=== PATIENT | female | born 1990 | race African-American/Black ===

== ENCOUNTER → 2018-12-17 | Outpatient (CLI) | payer OTHER ==
--- NOTE | 2018-12-17 19:50 | REP ---
Clinical: Irregular menstrual cycles. Technique: Transabdominal pelvic ultrasound followed by transvaginal examination for better evaluation of the endometrium and adnexa with color Doppler evaluation of the ovaries. Findings: Bladder is unremarkable and measures 7.4 x 6.5 x 3.9 cm . Heterogeneous anteverted uterus measures 8.8 x 4.4 x 5.5 cm with incidental myometrial calcifications. The endometrial complex measures 2.4 mm thickness. No discrete significant uterine or endometrial abnormalities are appreciated. IUD identified in central satisfactory position. Bilateral ovaries are normal in appearance and vascularity without evidence for torsion. Right ovary measures 3.1 x 2.0 x 1.7 cm ; R I = 0.51 . Left ovary measures 3.8 x 1.8 x 2.2 cm ; R I = 0.56 . No pelvic fluid or adnexal mass lesion . Impression: 1. Essentially normal pelvic ultrasound. Electronically Signed by Gene Lynn MD 12/17/2018 07:42 P
== END ==
LOC: M RAD 17:09
PROVIDERS: ATTEND Advanced Practice Midwife
DX: N92.6 Irregular menstruation, unspecified (principal)

== ENCOUNTER → 2019-02-05 | Outpatient (REF) | payer OTHER | LOC: M SFHCPLAZ 17:22 | PROVIDERS: ATTEND Nurse Practitioner Adult Health | DX: J02.9 Acute pharyngitis, unspecified (principal) | CPT/HCPCS: 87081; 87880; G0463 ==

== ENCOUNTER 2019-07-14 08:26 | Emergency (ER) | payer OTHER ==
[~2019-07-14] VITALS: Ht 157.5 cm; Wt 72.7 kg
[2019-07-14 09:02] LABS: BASO % 0.1 % (0.0-1.0); EOS # 0.3 10^3/uL (0.0-0.5); EOS % 2.4 % (0.0-3.0); HEMATOCRIT 41.6 % (36.0-47.0); HEMOGLOBIN 13.5 g/dl (12.0-15.5); LYMPH # 0.9 10^3/uL (1.5-5.0); LYMPH % 6.9 % (24.0-44.0); MEAN CORPUSCULAR HEMOGLOBIN 28.6 pg (27.0-33.0); MEAN CORPUSCULAR HGB CONC 32.5 g/dl (32.0-36.5); MEAN CORPUSCULAR VOLUME 88.1 fl (80.0-96.0); MONO # 0.8 10^3/uL (0.0-0.8); MONO % 5.9 % (0.0-5.0); NEUTROPHILS # 11.4 10^3/uL (1.5-8.5); NEUTROPHILS % 84.4 % (36.0-66.0); PLATELET COUNT, AUTOMATED 285 10^3/uL (150-450); RED BLOOD COUNT 4.72 10^6/uL (4.00-5.40); WHITE BLOOD COUNT 13.5 10^3/uL (4.0-10.0)
[2019-07-14 09:36] LABS: ALBUMIN 3.9 GM/DL (3.2-5.2); ALT/SGPT 14 U/L (12-78); BILIRUBIN,DIRECT < 0.1 MG/DL (0.0-0.2); BILIRUBIN,TOTAL 0.3 MG/DL (0.2-1.0); CK-MB VALUE MASS < 1.0 NG/ML (<3.6); CPK CREATINE PHOSPHOKINASE 111 U/L (26-192); TROPONIN I < 0.02 NG/ML (< 0.10)
[2019-07-14 09:37] LABS: FREE T4 1.21 NG/DL (0.76-1.46); LIPASE 41 U/L (73-393); NT-PRO BNP 30 PG/ML (<125)
--- NOTE | 2019-07-14 10:04 | REP ---
Portable chest, 09:40 a.m., single AP view with the the patient sitting: There are no comparisons. The lung adams are clear. The cardiac size is normal. The katerine, mediastinum, and skeletal structures are unremarkable. Impression: Negative portable chest. Electronically Signed by David Guardado MD 07/14/2019 09:56 A
[2019-07-14] MEDS ORDERED: ISOVUE-370 76% 100ML VIAL (Q9967) As Ordered ONE (10:16)
[2019-07-14] MEDS ORDERED: IPRATROPIUM 0.5MG/ALBUTEROL 2.5MG INH SOL UD 3ML (DUONEB)(J7620) NEB ONE (10:30)
[2019-07-14] MEDS ORDERED: ALBUTEROL SULFATE 2.5 MG/0.5 ML INH NEB SOLN INH ONE (10:30)
[2019-07-14] MEDS ORDERED: methylPREDNISolone INJ 40 MG/1 ML VIAL (J2920) IV ONE (10:30)
--- NOTE | 2019-07-14 11:15 | REP ---
CT of the chest with IV contrast, CT pulmonary angiography: The study is correlated with the portable plain film study performed earlier today. There are no emboli in the pulmonary trunk or central pulmonary arteries. There are no emboli in the pulmonary lobe or segment branches. There are no infiltrates. There are no pleural effusions. There is a 5 mm left upper lobe lung nodule on image 39. There is a 4 mm pleural-based left lower lobe lung nodule on image 65. There are no comparison studies. These are category III lung nodules. Recommend follow-up chest CT in 6 months for further evaluation. There is no mediastinal or hilar adenopathy. There are enlarged axillary nodes bilaterally, however these nodes have normal fatty katerine. The thoracic aorta is unremarkable. Cardiac size is normal. The visualized upper abdominal contents are unremarkable. Impression: There are no pulmonary emboli. There are no infiltrates or pleural effusions. There are two small left lung nodules as described. I would recommend follow-up chest CT in 6 months for further evaluation of these lung nodules. Electronically Signed by David Guardado MD 07/14/2019 11:07 A
[2019-07-14] MEDS ORDERED: NS 1,000 ML IV ONE (11:45)
[2019-07-14 15:29] LABS: CK-MB VALUE MASS < 1.0 NG/ML (<3.6); CPK CREATINE PHOSPHOKINASE 102 U/L (26-192); MB/CK RELATIVE INDEX 0.98 (< OR =4); TROPONIN I < 0.02 NG/ML (< 0.10)
[2019-07-14] MEDS ORDERED: PROAAER10 INH (15:57)
[2019-07-14] MEDS ORDERED: PRED50TA PO (15:57)
[2019-07-14 16:00] VITALS: BP 143/90
--- NOTE | 2019-07-14 20:25 | ED PDOC ---
Post-Departure Follow-Up joana mahan faxed formal report of cta chest for fu Brenna Estrada MD Jul 14, 2019 20:24
--- NOTE | 2019-07-14 21:30 | ECGEPIP ---
[facility] - ED Test Date: 2019-07-14 Pat Name: GUILLAUME CARNEY Department: Room: - Gender: Female Graphics Coordinator: EDVIN : 1990 Requested By: Brenna Olsen Order Number: [id number] Reading MD: Cristi Jimenez Measurements Intervals [place] Rate: 113 P: 71 NV: 167 QRS: 81 QRSD: 81 T: 26 QT: 294 QTc: 404 Interpretive Statements SINUS TACHYCARDIA Nonspecific T wave abnormality Comparison tracing not on file Electronically Signed on 07-14-2019 21:30:39 EDT by Cristi Jimenez
--- NOTE | 2019-07-14 21:42 | ECGEPIP ---
[facility] - ED Test Date: 2019-07-14 Pat Name: GUILLAUME CARNEY Department: Room: - Gender: Female Software Development Advisor: EDVIN : 1990 Requested By: Brenna Olsen Order Number: [id number] Reading MD: Cristi Jimenez Measurements Intervals [place] Rate: 125 P: 73 MI: 171 QRS: 85 QRSD: 78 T: -53 QT: 336 QTc: 485 Interpretive Statements SINUS TACHYCARDIA Nonspecific ST-T wave abnormalities Prolonged QTc interval Rate and QTc increased from tracing done 07-14-19 at 0842 Electronically Signed on 07-14-2019 21:41:53 EDT by Cristi Jimenez
--- NOTE | 2019-07-14 21:56 | ECGEPIP ---
[facility] - ED Test Date: 2019-07-14 Pat Name: GUILLAUME CARNEY Department: Room: - Gender: Female Helper/Driver: rocío : 1990 Requested By: Brenna Olsen Order Number: [id number] Reading MD: Cristi Jimenez Measurements Intervals [place] Rate: 109 P: 60 IA: 160 QRS: 84 QRSD: 79 T: 43 QT: 309 QTc: 417 Interpretive Statements SINUS TACHYCARDIA Nonspecific T wave abnormality Normalized rate and QTc when compared to tracing done 11:16 on same date Electronically Signed on 07-14-2019 21:56:41 EDT by Cristi Jimenez
== END 2019-07-14 16:19 | disposition home or self-care (01) ==
LOC: M ED 08:26
DX: J45.901 Unspecified asthma with (acute) exacerbation (principal); R91.8 Other nonspecific abnormal finding of lung field; R00.0 Tachycardia, unspecified; Z88.0 Allergy status to penicillin
CPT/HCPCS: 71045; 71275; 80047; 80076; 82550; 82553; 83690; 83880; 84439; 84443; 84484; 84702; 85025; 93005; 93041; 94640; 94760; 96374; 99285; J2920; Q9967

== ENCOUNTER → 2019-08-06 | Outpatient (CLI) | payer OTHER ==
[~2019-08-06] MED LIST: PRED50TA PO; PROAAER10 INH
--- NOTE | 2019-08-06 09:08 | PFTRPT ---
Height: 62.00 Inches Weight: 160.00 Lbs BSA: 1.74 Diagnosis: R06 DATE OF PROCEDURE: 08/06/2019 ORDERED BY: Dr. Joe Spirometry: Study of excellent technical quality. Forced vital capacity normal. FEV1 in proportion. Obstructive index is, therefore, normal. Flow Volume Loop: Expiratory limb of the flow volume loop is normal. Lung Volumes: Total lung capacity normal. Residual volume does suggest a degree of air trapping. Diffusing Capacity: Diffusing capacity normal. Hemoglobin: Hemoglobin acceptable at 14.6. Airway Mechanics: Airway resistance and conductance are normal. IMPRESSION: Mildly elevated residual volume needs clinical correlation. MTDD
== END ==
LOC: M CARPUL 08:25
PROVIDERS: ATTEND Internal Medicine Cardiovascular Disease
DX: R06.02 Shortness of breath (principal)

== ENCOUNTER → 2020-02-25 | Outpatient (CLI) | payer OTHER | LOC: M RAD 11:01 | PROVIDERS: ATTEND Nurse Practitioner Adult Health | DX: R91.1 Solitary pulmonary nodule (principal) ==

== ENCOUNTER → 2020-07-26 | Outpatient (CLI) | payer OTHER ==
--- NOTE | 2020-07-31 13:32 | REP ---
ULTRASOUND LEFT BREAST HISTORY: Nodule seen on CT chest 02/25/2020. TECHNIQUE: Real-time sonographic evaluation of the left breast is performed. The ultrasound is performed superiorly at the site of a nodule seen on the CT of 02/25/2020. FINDINGS: The nodule is palpable according to the patient. At that location, there is a solid superficial hypoechoic solid appearing mass. It measures approximately 1.7 x 1.3 x 1.9 cm. Compared to another prior CT of the chest 07/14/2019, this has not changed in size. Therefore, it has remained stable for approximately one year. According to the patient, it has remained stable for several years. IMPRESSION: ACR 3 probably benign. Solid nodule at 11 o'clock left breast has a maximum diameter of 1.9 cm. This, according to the patient, has remained stable for several years. It is stable since a prior CT of the chest 07/14/2019, approximately one year ago. Recommend six month follow-up ultrasound of the left breast to ensure continued stability. LORED
== END ==
LOC: M RAD 10:32
PROVIDERS: ATTEND Nurse Practitioner Adult Health
DX: N63.22 Unspecified lump in the left breast, upper inner quadrant (principal)

== ENCOUNTER → 2020-08-19 | Outpatient (REF) | payer OTHER ==
[2020-08-19 14:12] LABS: ALT/SGPT 23 U/L (12-78); BILIRUBIN,TOTAL 0.2 MG/DL (0.2-1.0); BLOOD UREA NITROGEN 8 MG/DL (7-18); CALCIUM LEVEL 9.2 MG/DL (8.5-10.1); CARBON DIOXIDE LEVEL 28 MEQ/L (21-32); CHLORIDE LEVEL 106 MEQ/L (98-107); CREATININE FOR GFR 0.82 MG/DL (0.55-1.30); GLOMERULAR FILTRATION RATE > 60.0 (>60); GLUCOSE, FASTING 81 MG/DL (70-100); POTASSIUM SERUM 4.6 MEQ/L (3.5-5.1); SODIUM LEVEL 139 MEQ/L (136-145); THYROID STIMULATING HORMONE 0.603 uIU/ML (0.358-3.740); TOTAL PROTEIN 8.2 GM/DL (6.4-8.2)
== END ==
LOC: M SFHCPLAZ 11:16
PROVIDERS: ATTEND Nurse Practitioner Adult Health
DX: Z00.00 Encounter for general adult medical examination without abnormal findings (principal); Z13.29 Encounter for screening for other suspected endocrine disorder
CPT/HCPCS: 36415; 80053; 84443; G0463

== ENCOUNTER 2021-02-01 13:58 | Emergency (ER) | payer OTHER ==
[~2021-02-01] VITALS: Ht 157.5 cm; Wt 71.7 kg
[2021-02-01 13:59] VITALS: BP 158/70
[2021-02-01] MEDS ORDERED: MONT10TA10 (14:10)
[2021-02-01] MEDS ORDERED: ALBUTEROL 90 MCG/ACT 8GM HFA INHALER INH ONE (14:25)
== END 2021-02-01 15:32 | disposition home or self-care (01) ==
LOC: M ED 13:58
DX: J98.01 Acute bronchospasm (principal); J45.909 Unspecified asthma, uncomplicated; Z88.0 Allergy status to penicillin

== ENCOUNTER → 2021-02-23 | Outpatient (CLI) | payer OTHER ==
[~2021-02-23] MED LIST changes: +MONT10TA10
--- NOTE | 2021-02-23 14:45 | REP ---
INDICATION: N64.9 LT BREAST LESION. COMPARISON: 07/26/2020 TECHNIQUE: Sonographic evaluation of a palpable left breast mass at the 11 o'clock position. FINDINGS: The solid nodules seen in the left breast at the 12 o'clock position is unchanged in size, shape, and ultrasonographic characteristics. IMPRESSION: Unchanged sonographic appearance of the known solid breast nodule which is clinically palpable and likely benign. ACR category 2. <Electronically signed by Ajay Ross > 02/23/21 [id number]
== END ==
LOC: M WHC 09:56
PROVIDERS: ATTEND Nurse Practitioner Adult Health
DX: N63.20 Unspecified lump in the left breast, unspecified quadrant (principal)

== ENCOUNTER → 2021-03-02 | Outpatient (CLI) | payer OTHER ==
[~2021-03-02] MED LIST changes: +ISOVUE-370 76% 100ML VIAL As Ordered ONE
--- NOTE | 2021-03-02 10:54 | REP ---
INDICATION: LUNG NODULE COMPARISON: 02/25/2020, 07/14/2019 TECHNIQUE: Axial contrast enhanced images from the thoracic inlet to the upper abdomen with coronal and sagittal reformations using 75 ml Isovue 370 intravenous contrast material. This CT examination was performed using the following dose reduction techniques: Automated exposure control, adjustment of mA and/or kv according to the patient's size, and use of iterative reconstruction technique. FINDINGS: The lung adams are well aerated, relatively symmetric and essentially clear. Few scattered small noncalcified nodules are again identified and unchanged. No acute consolidation, new significant nodule or mass. No pleural effusion. No pneumothorax. Tracheobronchial tree is patent. No significant mediastinal or hilar adenopathy. Mediastinum demonstrates small amount of residual thymic tissue along with normal appearance of the thoracic aorta, pulmonary vasculature and heart/pericardium. Ovoid lesion in the left breast is unchanged. IMPRESSION: Stable granulomatous changes. No acute mediastinal or pleuroparenchymal process. Stable left breast lesion. <Electronically signed by Gene Lynn > 03/02/21 [id number]
== END ==
LOC: M RAD 09:44
PROVIDERS: ATTEND Nurse Practitioner Adult Health
DX: R91.1 Solitary pulmonary nodule (principal)

== ENCOUNTER → 2021-03-24 | Outpatient (CLI) | payer OTHER ==
[~2021-03-24] MED LIST changes: -ISOVUE-370 76% 100ML VIAL As Ordered ONE
--- NOTE | 2021-03-24 16:09 | REPVR ---
PROCEDURE INFORMATION: Exam: CT Maxillofacial Without Contrast, Sinus Exam date and time: 03/24/2021 3:45 PM Age: 30 years old Clinical indication: Pain; Other: Sinus; Additional info: Chronic maxillary sinusitis TECHNIQUE: Imaging protocol: CT Maxillofacial without contrast. Focus on the sinuses. Radiation optimization: All CT scans at this facility use at least one of these dose optimization techniques: automated exposure control; mA and/or kV adjustment per patient size (includes targeted exams where dose is matched to clinical indication); or iterative reconstruction. COMPARISON: No relevant prior studies available. FINDINGS: Frontal sinuses: Normal. No air-fluid levels. Ethmoid air cells: There is mild left anterior ethmoid mucosal thickening. Sphenoid sinuses: There is mild mucosal thickening within the left sphenoid sinus Maxillary sinuses: There is mild mucosal thickening along the floors of the maxillary sinuses. No air-fluid levels. Ostiomeatal units narrowed by mucosal thickening. Nasal cavity/Septum: Unremarkable. There are matilda bullosa of the middle turbinates bilaterally. There is hypertrophy of the nasal turbinates. Orbital cavity: Orbits are normal. Globes are unremarkable. Bones/joints: Unremarkable. Soft tissues: Unremarkable. IMPRESSION: Mild sinus mucosal disease. Electronically signed by: Connie Ho On 03/24/2021 16:08:36 PM
== END ==
LOC: M RAD 15:39
PROVIDERS: ATTEND Otolaryngology
DX: J32.0 Chronic maxillary sinusitis (principal)

== ENCOUNTER 2021-12-05 09:49 | Emergency (ER) | payer OTHER ==
[~2021-12-05] VITALS: Ht 157.5 cm; Wt 72.7 kg
[~2021-12-05 09:49] MED LIST changes: -MONT10TA10; +MONT10TA97
[2021-12-05] MEDS ORDERED: ALBUTEROL 90 MCG/ACT 8GM HFA INHALER INH ONE (10:40)
[2021-12-05] MEDS ORDERED: PRED20TA PO (12:11)
[2021-12-05 12:21] VITALS: BP 137/89
== END 2021-12-05 12:23 | disposition home or self-care (01) ==
LOC: M ED 09:49
DX: J09.X2 Influenza due to identified novel influenza A virus with other respiratory manifestations (principal); J11.1 Influenza due to unidentified influenza virus with other respiratory manifestations; J45.909 Unspecified asthma, uncomplicated; Z88.1 Allergy status to other antibiotic agents

== ENCOUNTER → 2021-12-20 | Outpatient (REF) | payer OTHER ==
[~2021-12-20] MED LIST changes: +PRED20TA PO
== END ==
LOC: M SFHCPLAZ 13:31
PROVIDERS: ATTEND Physician Assistant
DX: R05.9 Cough, unspecified (principal)

== ENCOUNTER → 2022-03-01 | Outpatient (CLI) | payer OTHER ==
[2022-03-01 13:05] LABS: BASO % 0.3 % (0.0-1.0); EOS % 0.3 % (0.0-3.0); HEMATOCRIT 40.8 % (36.0-47.0); HEMOGLOBIN 12.9 g/dl (12.0-15.5); LYMPH # 1.2 10^3/uL (1.5-5.0); LYMPH % 37.2 % (24.0-44.0); MEAN CORPUSCULAR HEMOGLOBIN 27.8 pg (27.0-33.0); MEAN CORPUSCULAR HGB CONC 31.6 g/dl (32.0-36.5); MEAN CORPUSCULAR VOLUME 87.9 fl (80.0-96.0); MONO # 0.4 10^3/uL (0.0-0.8); MONO % 13.1 % (2.0-8.0); NEUTROPHILS # 1.6 10^3/uL (1.5-8.5); NEUTROPHILS % 48.5 % (36.0-66.0); PLATELET COUNT, AUTOMATED 280 10^3/uL (150-450); RED BLOOD COUNT 4.64 10^6/uL (4.00-5.40); WHITE BLOOD COUNT 3.2 10^3/uL (4.0-10.0)
[2022-03-01 13:22] LABS: ALBUMIN 3.7 GM/DL (3.2-5.2); ALT/SGPT 23 U/L (12-78); BILIRUBIN,TOTAL 0.2 MG/DL (0.2-1.0); BLOOD UREA NITROGEN 8 MG/DL (7-18); C REACTIVE PROTEIN QUANTITATIV 0.43 MG/DL (0.00-0.30); CALCIUM LEVEL 9.1 MG/DL (8.5-10.1); CARBON DIOXIDE LEVEL 27 MEQ/L (21-32); CHLORIDE LEVEL 109 MEQ/L (98-107); COMPLEMENT C3 110 MG/DL (90-180); COMPLEMENT C4 29 MG/DL (10-40); CREATININE FOR GFR 0.83 MG/DL (0.55-1.30); GLOMERULAR FILTRATION RATE > 60.0 (>60); GLUCOSE, FASTING 87 MG/DL (70-100); POTASSIUM SERUM 4.2 MEQ/L (3.5-5.1); RHEUMATOID FACTOR QUANT 46.6 IU/ML (<15.0); SODIUM LEVEL 139 MEQ/L (136-145); THYROID STIMULATING HORMONE 0.943 uIU/ML (0.358-3.740); THYROXINE (T4) 9.1 UG/DL (4.5-12.0)
[2022-03-01 13:24] LABS: THYROID PEROXIDASE ANTIBODY < 28.0 U/ML (<60.0); TOTAL T3 135.9 NG/DL (60.0-181.0)
[2022-03-01 13:46] LABS: ERYTHROCYTE SEDIMENTATION RATE 13 mm/hr (0-20)
== END ==
LOC: M WUC 08:37
PROVIDERS: ATTEND Allergy & Immunology Allergy
DX: L50.1 Idiopathic urticaria (principal)